=== PATIENT | male | born 2000 | race Caucasian/White ===

== ENCOUNTER 2022-12-14 04:46 | Emergency (ER) | payer SELFPAY ==
[2022-12-14] VITALS (13 sets, daily range): BP systolic 117–142; BP diastolic 66–90; PULSE 81–100; RESP 7–22; TEMP 36.7; O2SAT 97–99
--- NOTE | ~2022-12-14 | CT_ITS ---
CT of the Abdomen and Pelvis: Indication: Abdominal pain Technique: 2.5 mm axial scans were obtained through the abdomen and pelvis following intravenous adm inistration of 100 cc of Omnipaque 350. Dose reduction technique was used on this scan by utilizing a utomated exposure control and iterative reconstruction technique. The dose-length product (DLP) was 2 31.93 mGy-cm. Findings: Scans through the lung bases are unremarkable. The liver, spleen, pancreas, gallbladder, adrenals and kidneys are within normal limits. No evidence of aortic aneurysm. No lymphadenopathy. No bowel obstruction or bowel wall thickening. There is no evidence to suggest acute appendicitis. Images through the pelvis were performed. Urinary bladder unremarkable. No pelvic mass seen. No ascit es. Impression: No significant abnormalities seen. Reviewed, dictated and finalized at location . Impression: No significant abnormalities seen.
--- NOTE | 2022-12-14 05:06 | PC.NURSE ---
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 Pt states he has not used x2 years.
[2022-12-14 05:25] LABS: Basophils Absolute Auto 0.1 K/mm3 (0.0-0.1); Basophils Percent Auto 0.5 % (0.2-1.2); Eosinophils Absolute Auto 0.1 K/mm3 (0-0.3); Eosinophils Percent Auto 0.9 % (0-4.4); Hematocrit 43.5 % (42.0-52.0); Hemoglobin 15.5 g/dL (14.0-18.0); Immature Granulocyte Absolute 0.05 K/mm3 (0.00-0.031); Immature Granulocyte Percent A 0.4 % (0-0.5); Lymphocytes Absolute Auto 2.22 K/mm3 (0.9-3.2); Lymphocytes Percent Auto 17.6 % (18.3-44.2); Mean Corpuscular HGB Conc 35.6 g/dl (32-36); Mean Corpuscular Hemoglobin 30.9 pg (26-34); Mean Corpuscular Volume 86.8 fl (80-100); Monocytes Absolute Auto 0.6 K/mm3 (0.1-0.6); Monocytes Percent Auto 4.6 % (2.6-8.5); Neutrophils Absolute Auto 9.6 K/mm3 (1.3-6.7); Platelet Count Result 257 k/mm3 (150-375); Red Blood Count 5.01 M/mm3 (4.6-6.20); Red Cell Distribution Width 12.3 % (11.5-14.5); White Blood Count 12.6 K/mm3 (4.5-10.0)
[2022-12-14 05:34] LABS: Ethanol < 10 mg/dL (<10)
[2022-12-14 05:36] LABS: Alanine Aminotransferase 18 U/L (6-50); Albumin Level 4.5 g/dL (3.5-5.1); Alkaline Phosphatase 84 U/L (38-126); Anion Gap 7 mmol/L (8-16); Aspartate Amino Transferase 27 U/L (17-59); Bilirubin,Total 0.6 mg/dL (0.2-1.3); Blood Urea Nitrogen 13 mg/dL (9-20); Calcium 9.4 mg/dL (8.4-10.2); Carbon Dioxide 26 mmol/L (22-30); Chloride 105 mmol/L (98-107); Estimated CRCL calculation 135 ml/min; Estimated Glomerular Filt Rate > 60; Glucose 113 mg/dL (65-110); Potassium 3.8 mmol/L (3.4-5.0); Sodium 138 mmol/L (137-145)
[2022-12-14 05:40] LABS: Appearance Urine Cloudy (Clear); Bacteria Urine None Seen /hpf; Bilirubin Urine Negative (Negative); Blood Urine Negative (Negative); Color Urine Yellow (Yellow); Glucose Urine UA Negative (Negative); Ketones Urine Trace mg/dL (Negative); Leukocyte Esterase Ur Negative LEU/UL (Negative); Nitrate Urine Negative (Negative); Non Pathogenic Casts 0-2; Protein Urine Negative (Negative); RBC Urine 0-2 /hpf (0-2); Specific Grav Ur 1.022 (1.001-1.035); Squamous Epithelial Cell Urine None seen /hpf (Few); WBC Urine 0-5 /hpf
[2022-12-14 05:42] LABS: Add Urine Microscopic? YES
[2022-12-14 05:48] LABS: Amphetamine Screen Urine Negative (Negative); Barbiturate Screen Urine Negative (Negative); Benzodiazepines Screen Urine Negative (Negative); Cannabinoid Screen Urine Negative (Negative); Cocaine Screen Urine Negative (Negative); Methadone Screen Urine Negative (Negative); Opiate Screen Urine Negative (Negative); Phencyclidine Screen Urine Negative (Negative)
[2022-12-14 06:01] LABS: Influenza A QL RT-PCR Negative (Negative); Influenza B QL RT-PCR Negative (Negative); SARS-CoV-2 RNA PCR Negative (Negative)
--- NOTE | 2022-12-14 06:27 | PC.NURSE ---
THis RN called alysha Grayson father per patient request. alysha Grayson father did not answer and this RN left a message for Kenan to call LETICIA price back.
--- NOTE | 2022-12-14 07:01 | ED.PSYCH ---
HPI - Psych General Chief Complaint: Psychiatric Symptoms Stated Complaint: Dizzy and fell, N/D, headache, anxiety Time Seen by Provider: 12/14/22 06:36 Source: patient Limitations: no limitations History of Present Illness HPI Narrative: Patient presents to the emergency department for multiple complaints. Patient states last night he was at his girlfriend's house and he got into a verbal altercation with her and was really worked up and then was feeling slightly lightheaded and went to go sit down and lay his head on the desk and the next thing he knows he woke up and was looking at EMS and does not recall what happened and believes he may have passed out. Patient denies history of passing out in the past. Patient states that on the ride over with EMS he noticed some right lower quadrant burning abdominal discomfort that was worse with any bumps in the road and is overall nonradiating, mild in intensity, constant, has not noticed anything making the pain better, has not tried anything for the pain. Patient denies diarrhea, melena, dysuria, hematuria, urinary frequency, urinary urgency, history of kidney stones, penile discharge, testicular pain, testicular swelling, chest pain, shortness of breath, palpitations, history of abnormal heart rhythms, numbness, weakness, headache, vision changes, sore throat, difficulty swallowing, dysarthria, confusion. Patient does state that he is having suicidal ideations without any plan noting that he has been feeling down and denies any history of trying to harm himself. Patient denies homicidal ideations. Patient denies hallucinations. Patient denies illicit drug use, alcohol use. Patient admits to history of a possible psychiatric illness when he was a child but does not recall what that was and denies taking any medications on a regular basis or seeing a psychiatrist in the recent past. Patient denies any injuries or hitting his head. Patient notes that this time he is overall feeling okay. Patient does admit to some nausea earlier tonight when he went to go lay his head down but denies any vomiting. Related Data Allergies Allergy/AdvReac Type Severity Reaction Status Date / Time No Known Allergies Allergy Verified 12/14/22 05:07 Review of Systems Review of Systems: A 10 system review of systems was completed on the patient and is negative except for what is stated in the HPI. Nursing and ancillary documentation was reviewed. [facility] Social History Social History Substance use type: former substance user Comments At time of signature, I have reviewed and agree with nursing past medical, surgical, social and family history unless otherwise noted. Please see the nursing chart for further information. There is no relevant family history pertinent to the presenting complaint. Exam Narrative: CONST: No acute distress. Well nourished. HENMT: Head is normocephalic and atraumatic. Moist mucous membranes. No posterior oropharynx erythema. Poor dentition. EYES: No conjunctival icterus, injection, or pallor. PERRL. No nystagmus. NECK: No meningeal signs. No JVD. No thyromegaly. No palpable cervical lymphadenopathy. RESP: Able to speak in full sentences. Normal respiratory effort. CTAB. CARDIO: Regular rate. Regular rhythm. 2+ DP and radial pulses bilaterally. GI: Nondistended. Soft. Mild right lower quadrant tenderness palpation. No rebound or guarding or rigidity. Negative Louie sign. No palpable masses or hernias. : No CVA tenderness to palpation. SKIN: No rashes or lesions noted on exposed skin. NEURO: Oriented x3. Moves all extremities. Sensation intact to light touch throughout. Motor strength is 5 out of 5 in all 4 extremities. Speech is clear and fluent. EXTREM: No pedal edema. No deformities or tenderness to palpation. Course Vital Signs Vital signs: Vital Signs Temperature 98.1 F 12/14/22 04:49 Pulse Rate 100 12/14/22 04:49 Respiratory Rate 22 H 09/
--- NOTE | 2022-12-14 08:48 | ECG_ITS ---
Measurements Intervals [place] Rate: 102 P: 79 VA: 214 QRS: 99 QRSD: 105 T: 69 QT: 330 QTc: 431 Interpretive Statements SINUS TACHYCARDIA WITH FIRST DEGREE AV BLOCK RIGHT AXIS DEVIATION ST ELEVATION IN DIFFUSE LEADS- CONSIDER PERICARDITIS OR EARLY REPOLARIZATION ABNORMAL ECG NO PREVIOUS ECG AVAILABLE FOR COMPARISON Electronically Signed On 12-14-2022 9:17:00 CDT by Pepe Garcia D.O.
[2022-12-14] MEDS: ACETAMINOPHEN 500 MG TABLET 1000 MG PO (08:54)
== END 2022-12-14 10:02 | disposition home or self-care (01) ==
PROVIDERS: Student in an Organized Health Care Education/Training Program; Emergency Provider Emergency Medicine; PCP Family Medicine Sports Medicine
DX: R55 Syncope and collapse (principal); R45.851 Suicidal ideations; R10.31 Right lower quadrant pain; Z20.822 Contact with and (suspected) exposure to COVID-19; R00.0 Tachycardia, unspecified; I44.0 Atrioventricular block, first degree; R94.31 Abnormal electrocardiogram [ECG] [EKG]
CPT/HCPCS: 36415; 74177; 80053; 80307; 81001; 84443; 85025; 87636; 93005; 99284; A9270; Q9967